=== PATIENT | female | born 1985 | race African-American/Black ===

== ENCOUNTER 2017-10-21 14:25 | Emergency (ER) | payer OTHER | END 2017-10-21 15:25 | disposition home or self-care (01) | LOC: ER 14:25 | DX: S61.210A Laceration without foreign body of right index finger without damage to nail, initial encounter (principal); I10 Essential (primary) hypertension; Y28.8XXA Contact with other sharp object, undetermined intent, initial encounter; Y93.89 Activity, other specified; Y99.8 Other external cause status; Y92.89 Other specified places as the place of occurrence of the external cause | CPT/HCPCS: 12001; 99283-25 ==

== ENCOUNTER 2019-03-15 10:07 | Emergency (ER) | payer MEDICAID, OTHER ==
[~2019-03-15] VITALS: Ht 170.2 cm; Wt 114.8 kg
[~2019-03-15 10:07] MED LIST: BISO1TAB7 PO
[2019-03-15] MEDS ORDERED: IPRATRPIUM/ALBUTEROL 0.5/2.5MG 3 ML NEBU. NEB ONE (10:45)
[2019-03-15] MEDS ORDERED: PROMETHAZINE 12.5 MG TABLET. PO ONE (10:45)
[2019-03-15] MEDS ORDERED: predniSONE 10 MG TABLET PO ONE (10:45)
[2019-03-15] MEDS ORDERED: diphenhydrAMINE HCL 25 MG CAPSULE PO ONE (10:45)
[2019-03-15] MEDS ORDERED: SUMAtriptan SUCCINATE 25 MG TABLET PO ONE (10:45)
[2019-03-15] MEDS ORDERED: BENZONATATE 100 MG CAPSULE. PO ONE (10:45)
[2019-03-15] MEDS ORDERED: BENZ100C PO (11:14)
[2019-03-15] MEDS ORDERED: FLUT9.9S NS (11:14)
[2019-03-15] MEDS ORDERED: PROM25TA10 PO (11:14)
[2019-03-15] MEDS ORDERED: SUMA50TA3 PO (11:14)
--- NOTE | 2019-03-15 11:14 | PHYS DOC ---
Past Medical History Past Medical History: No Pertinent History, Hypertension, Migraines Past Surgical History: No Surgical History Alcohol Use: None Drug Use: None Adult General Chief Complaint Chief Complaint: HEADACHE HPI HPI Patient is a 34 year old female with history of hypertension, migraine headaches, who presents to the ED today complaining of mild intermittent generalized headache for one week. Patient is also complaining of photophobia with nausea. Denies any vomiting. Denies this being the worst headache in her life. She is also complaining of cold symptoms as well. She states for the last couple days she's had cough with nasal congestion. She states she feels her ear specifically the left one has fluid in it. She states 3 days ago she had a fever with her cold symptoms which subsided after taking ibuprofen. Review of Systems Review of Systems Constitutional: Denies fever or chills [] Eyes: Denies change in visual acuity, redness, or eye pain [] HENT: Reports nasal congestion, denies sore throat [] Respiratory: Reports cough, denies shortness of breath [] Cardiovascular: No additional information not addressed in HPI [] GI: Denies abdominal pain, nausea, vomiting, bloody stools or diarrhea [] : Denies dysuria or hematuria [] Musculoskeletal: Denies back pain or joint pain [] Integument: Denies rash or skin lesions [] Neurologic: Reports headache, denies focal weakness or sensory changes [] All other systems were reviewed and found to be within normal limits, except as documented in this note. Current Medications Current Medications Current Medications Medications (Trade) Dose Ordered Sig/Dian Start Time Stop Time Status Last Admin Dose Admin Albuterol/ Ipratropium (Duoneb) 3 ml 1X ONCE 03/15/19 10:45 03/15/19 10:46 DC 03/15/19 10:51 3 ML Benzonatate (Tessalon Perle) 100 mg 1X ONCE 03/15/19 10:45 03/15/19 10:46 DC 03/15/19 10:50 100 MG Diphenhydramine HCl (Benadryl) 25 mg 1X ONCE 03/15/19 10:45 03/15/19 10:46 DC 03/15/19 10:50 25 MG Prednisone (Prednisone) 50 mg 1X ONCE 03/15/19 10:45 03/15/19 10:46 DC 03/15/19 10:50 50 MG Promethazine HCl (Phenergan) 12.5 mg 1X ONCE 03/15/19 10:45 03/15/19 10:46 DC 03/15/19 10:50 12.5 MG Sumatriptan Succinate (Imitrex) 25 mg 1X ONCE 03/15/19 10:45 03/15/19 10:46 DC 03/15/19 10:50 25 MG Allergies Allergies Allergies Coded Allergies Type Severity Reaction Last Updated Verified No Known Drug Allergies 07/30/14 No Physical Exam Physical Exam Constitutional: Well developed, well nourished, no acute distress, non-toxic appearance. [] HENT: Normocephalic, atraumatic, bilateral external ears normal, oropharynx moist, no oral exudates, nose normal. Patient sounds congested nasally. Clear fluid noted in bilateral TM, no erythema. Eyes: PERRLA, EOMI, conjunctiva normal, no discharge. [] Neck: Normal range of motion, no tenderness, supple, no stridor. [] Cardiovascular:Heart rate regular rhythm, no murmur [] Lungs & Thorax: Bilateral breath sounds clear to auscultation [] Abdomen: Bowel sounds normal, soft, no tenderness, no masses, no pulsatile masses. [] Skin: Warm, dry, no erythema, no rash. [] Back: No tenderness, no CVA tenderness. [] Extremities: No tenderness, no cyanosis, no clubbing, ROM intact, no edema. [] Neurologic: Alert and oriented X 3, normal motor function, normal sensory function, no focal deficits noted. Cranial nerves II through XII intact Psychologic: Affect normal, judgement normal, mood normal. [] Current Patient Data Vital Signs Vital Signs Date Time Temp Pulse Resp B/P (MAP) Pulse Ox O2 Delivery O2 Flow Rate FiO2 03/15/19 10:51 97 Room Air Lab Values Laboratory Tests Test 03/15/19 10:21 POC Urine HCG, Qualitative Hcg negative (Negative) EKG EKG [] Radiology/Procedures Radiology/Procedures [] Course & Med Decision Making Course & Med Decision Making Pertinent Labs and Imaging studies reviewed. (See chart for details) This is a 34-year-old female patient who presents to the ED today with multiple complaints including a headache, cough, nasal congestion. Has history of migraine headaches. Patient was given a DuoNeb treatment, given migraine cocktail. Discharged to home, with medications for her symptoms. Follow-up with PCP in 1-2 weeks. Dragon Disclaimer Dragon Disclaimer This electronic medical record was generated, in whole or in part, using a voice recognition dictation system. Departure Departure Impression: Primary Impression: Migraine Additional Impressions: URI (upper respiratory infection) Cough Disposition: HOME, SELF-CARE Condition: STABLE Referrals: UNKNOWN PCP NAME (PCP) Follow-up with your own doctor in the course of this week or next week Patient Instructions: Cough, Adult, [id number], Migraine Headache, Upper Respiratory Infection, Adult Additional Instructions: You were evaluated in the emergency room for headache, cough and cold symptoms. Take the prescribed medications as ordered. Follow-up with your own doctor in 1- 2 weeks. Push fluids. Scripts Fluticasone Propionate (Flonase Allergy Relief) 9.9 Ml [place].susp 2 SPRAYS NS DAILY, #1 BOTTLE Prov: IVANNA MCKEON APRN 03/15/19 Benzonatate (TESSALON PERLE) 100 Mg Capsule 1 CAP PO TID, #30 CAP Prov: IVANNA MCKEON APRN 03/15/19 Promethazine Hcl (PROMETHAZINE HCL) 25 Mg Tablet 1 TAB PO PRN Q6HRS, #20 TAB Prov: IVANAN MCKEON APRN 03/15/19 Sumatriptan Succinate (IMITREX) 50 Mg Tablet 1 TAB PO UD, #9 TAB 1 Refill Take one tablet at the onset of headache, repeat in 2 hours if headache persist. Do not take more than 2 tablets in 24 hrs. Prov: IVANNA MCKEON APRN 03/15/19 Problem Qualifiers Primary Impression: Migraine Migraine type: unspecified Status migrainosus presence: without status migrainosus Intractability: not intractable Qualified Codes: G43.909 - Migraine, unspecified, not intractable, without status migrainosus Additional Impressions: URI (upper respiratory infection) URI type: unspecified URI Qualified Codes: J06.9 - Acute upper respiratory infection, unspecified IVANNA MCKEON APRN Mar 15, 2019 11:14
[2019-03-15 11:23] VITALS: BP 107/59
== END 2019-03-15 11:37 | disposition home or self-care (01) ==
LOC: ER 10:07
DX: G43.909 Migraine, unspecified, not intractable, without status migrainosus (principal); J06.9 Acute upper respiratory infection, unspecified; I10 Essential (primary) hypertension
CPT/HCPCS: 81025; 94640; 99284; J7512; J7620; Q0163; Q0169